=== PATIENT | male | born 1980 | race Caucasian/White ===

== ENCOUNTER 2020-01-08 14:30 | Emergency (ER) | payer BC ==
[2020-01-08] MEDS ORDERED: Alum Hydroxide/Mag Hydroxide 15 ML, Lidocaine 2% 15 ML PO ONE ×2 (14:56)
--- NOTE | 2020-01-08 15:42 | EDM.PDOC ---
ED HPI GENERAL MEDICAL PROBLEM - General Chief Complaint: Chest Pain Stated Complaint: CHEST PAIN Time Seen by Provider: 01/08/20 14:35 Source of Information: Reports: Patient History Limitations: Reports: No Limitations - History of Present Illness INITIAL COMMENTS - FREE TEXT/NARRATIVE: Patient presented to the ED because of chest pain. the pain is sharp and burning , 3/10. There is no N/V, recent cough and cold, fever or chills. - Related Data Allergies Allergy/AdvReac Type Severity Reaction Status Date / Time No Known Allergies Allergy Verified 01/08/20 14:41 Home Meds: Home Meds Losartan Potassium 50 mg PO DAILY 01/08/20 [History] ED ROS GENERAL - Review of Systems Review Of Systems: See Below Constitutional: Reports: No Symptoms HEENT: Reports: No Symptoms Respiratory: Reports: No Symptoms Cardiovascular: Reports: Chest Pain Endocrine: Reports: No Symptoms GI/Abdominal: Reports: No Symptoms : Reports: No Symptoms Musculoskeletal: Reports: No Symptoms Skin: Reports: No Symptoms Neurological: Reports: No Symptoms ED EXAM, GENERAL - Physical Exam Exam: See Below Exam Limited By: No Limitations General Appearance: Alert, No Apparent Distress Ears: Normal External Exam, Normal Canal Nose: Normal Inspection, Normal Mucosa, No Blood Throat/Mouth: Normal Inspection, Normal Lips, Normal Teeth Head: Atraumatic, Normocephalic Neck: Normal Inspection, Supple, Non-Tender, Full Range of Motion Respiratory/Chest: No Respiratory Distress, Lungs Clear, Normal Breath Sounds Cardiovascular: Normal Peripheral Pulses, Regular Rate, Rhythm, No Edema, No JVD GI/Abdominal: Normal Bowel Sounds, Soft, Non-Tender Back Exam: Normal Inspection, Full Range of Motion Course - Vital Signs Text/Narrative:: EKG/labs was discussed with patient and verbalized full understanding EKG-NSR Trop-neg ASA 324 mg po x1 GI cocktail which helped resolved the pain Last Recorded V/S: Last Vital Signs Temp 36.2 C 01/08/20 14:35 Pulse 76 01/08/20 14:35 Resp 17 01/08/20 14:35 BP 114/82 01/08/20 14:35 Pulse Ox 97 01/08/20 14:35 - Orders/Labs/Meds Labs: Laboratory Tests 01/08/20 01/08/20 01/08/20 Range/Units 15:10 15:10 15:10 WBC 7.3 (4.5-12.0) X10-3/uL RBC 5.62 (4.30-5.75) x10(6)uL Hgb 16.6 (13.5-17.8) g/dL Hct 50.4 (30.0-51.3) % MCV 89.6 (80-96) fL MCH 29.5 (27.7-33.6) pg MCHC 32.9 (32.2-35.4) g/dL RDW 12.9 (11.5-15.5) % Plt Count 282 (125-369) X10(3)uL MPV 7.9 (7.4-10.4) fL Neut % (Auto) 76.9 (46-82) % Lymph % (Auto) 16.6 (13-37) % Buchanan % (Auto) 4.6 (4-12) % Eos % (Auto) 1 (1.0-5.0) % Baso % (Auto) 1 (0-2) % Neut # (Auto) 5.7 (1.6-8.3) # Lymph # (Auto) 1.2 (0.6-5.0) # Buchanan # (Auto) 0.3 (0.0-1.3) # Eos # (Auto) 0.0 (0.0-0.8) # Baso # (Auto) 0.1 (0.0-0.2) # Sodium 140 (135-145) mmol/L Potassium 3.8 (3.5-5.3) mmol/L Chloride 105 (100-110) mmol/L Carbon Dioxide 25 (21-32) mmol/L BUN 16 (7-18) mg/dL Creatinine 1.3 (0.70-1.30) mg/dL Est Cr Clr Drug Dosing TNP Estimated GFR (MDRD) > 60 (>60) BUN/Creatinine Ratio 12.3 (9-20) Glucose 97 (80-116) mg/dL Calcium 9.1 (8.6-10.2) mg/dL Troponin I 4.8 (4.0-60.3) pg/mL Meds: Medications Discontinued Medications Generic Name Dose Route Start Last Admin Trade Name Freq PRN Reason Stop Dose Admin Al Hydroxide/Mg Hydroxide 15 0 ml 01/08/20 14:56 01/08/20 15:16 ml/ Lidocaine HCl 15 ml PO 01/08/20 14:57 30 ml ONETIME ONE Administration Departure - Departure Time of Disposition: 15:55 Disposition: Home, Self-Care 01 Condition: Good Clinical Impression: Atypical chest pain, Gastroesophageal reflux disease Instructions: Nonspecific Chest Pain, Adult, [id number] Referrals: Frank Brennan MD [Primary Care Provider] - Forms: ED Department Discharge Additional Instructions: Please read discharge instructions on atypical chest pain and GERD?heart burn Chew and swallow extra strength TUMS as needed or a baking soda solution as intructed follow op as needed Sepsis Event Note - Evaluation Sepsis Screening Result: No Definite Risk - Focused Exam Vital Signs: Vital Signs Temp Pulse Resp BP Pulse Ox 01/08/20 14:35 36.2 C 76 17 114/82 97 Date Exam was Performed: 01/08/20 Time Exam was Performed: 16:09
== END 2020-01-08 15:55 | disposition home or self-care (01) ==
LOC: FB.ED 14:30
DX: K21.9 Gastro-esophageal reflux disease without esophagitis (principal); Z79.899 Other long term (current) drug therapy
CPT/HCPCS: 36415; 80048; 84484; 85025; 93005; 99283; 99285; A9270